=== PATIENT | female | born 1945 | race Caucasian/White ===

== ENCOUNTER 2017-01-04 17:46 | Emergency (ER) | payer MEDICARE ==
[~2017-01-04 17:46] MED LIST: ALEVE220 MG PO; ASAB PO; ESKALITH PO; KLONO2 PO; LOTREL1 CA2 PO; LOVAZA1 GM PO; MEVACOR PO; MULTIPLE VIT PO; SYN075 PO
== END 2017-01-04 20:17 | disposition home or self-care (01) ==
LOC: ER 17:46
DX: M54.5 Low back pain (principal); I10 Essential (primary) hypertension; Z88.2 Allergy status to sulfonamides; Z88.5 Allergy status to narcotic agent; Z88.1 Allergy status to other antibiotic agents; Z88.8 Allergy status to other drugs, medicaments and biological substances; Z79.82 Long term (current) use of aspirin; Z79.899 Other long term (current) drug therapy
CPT/HCPCS: 96372; 99283; J2800